=== PATIENT | male | born 1975 ===

== ENCOUNTER 2019-06-29 13:25 | Emergency (ER) | payer OTHER ==
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
[2019-06-29] MEDS ORDERED: HYDROcodone/ACETAMINOPHEN 10-325MG TAB PO ONE (14:05)
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
[2019-06-29 16:29] VITALS: BP 136/92
== END 2019-06-29 16:29 | disposition home or self-care (01) ==
LOC: ED 13:25
DX: R51 Headache (principal); M54.2 Cervicalgia; M54.5 Low back pain
CPT/HCPCS: 70450; 72040; 72080; 99284